=== PATIENT | female | born 1995 | race American Indian/Alaskan Native ===

== ENCOUNTER 2017-10-22 18:17 | Observation (INO) | payer OTHER ==
[2017-10-22] MEDS ORDERED: Sodium Chloride 0.9% 1,000 ML IV ONE ×2 (18:50→21:38)
--- NOTE | 2017-10-22 18:53 | C.PDOC ---
History Of Present Illness 22 yo female, no prior hx, at 5 weeks gestation presents with right sided abd pain/pelvic pain since tuesday. pt was seen at another institution, and had beta of 250, no iup detected. pt reports she followed with her obgyn and was told "nothing was seen". pt reports persistent pain.. pt denies fevers, n/v/d, urinary changes, vb. Time Seen by Provider: 10/22/17 18:33 Chief Complaint (Nursing): Abdominal Pain Past Medical History Reviewed: Historical Data, Nursing Documentation, Vital Signs Vital Signs: Last Vital Signs Temp 98.5 F 10/22/17 22:20 Pulse 88 10/22/17 23:53 Resp 22 10/22/17 23:53 BP 117/54 L 10/22/17 23:53 Pulse Ox 99 10/23/17 00:01 - Medical History PMH: Asthma Family History: States: Unknown Family Hx - Social History Hx Alcohol Use: No Hx Substance Use: No - Immunization History Hx Tetanus Toxoid Vaccination: No Hx Influenza Vaccination: No Hx Pneumococcal Vaccination: No Review Of Systems Gastrointestinal: Positive for: Abdominal Pain Physical Exam - Physical Exam Appears: Well, No Acute Distress Skin: Normal Color, Warm, Dry Eye(s): bilateral: Normal Inspection, PERRL, EOMI Nose: Normal Throat: Normal Neck: Normal Cardiovascular: Rhythm Regular Respiratory: Normal Breath Sounds Gastrointestinal/Abdominal: Normal Exam, Soft, Tenderness (mostly right adenxal pain, mild rlq), No Guarding, No Rebound, Other (obese) Back: Normal Inspection Extremity: Normal ROM ED Course And Treatment - Laboratory Results Result Diagrams: 10/22/17 19:10 10/22/17 19:10 O2 Sat by Pulse Oximetry: 99 Medical Decision Making Medical Decision Making: pt with rlq pain right adexal pain consider early preg, ectopic, possible appendicits - labs imaging pending 1133: pt persistent rlq ttp. us shows suspected early preg vs non viable intrauterine . discussed with us tech. advised US with non visualized appendix. discussed with dr york, agrees to see pt. case discussed with dr beal, agrees to be on consult requests medicine admission. accepted by dr jenkins. pt to get mri in am. updated surgical tech. clinical suspicion for appendicitis is low, as pt afebrile no wbc, however not excluded. pt has been seen 3x this week with same symptoms . pt agrees to obs for mri in am Disposition - Disposition Disposition: HOSPITALIZED Disposition Time: 23:34 Condition: STABLE - Clinical Impression Clinical Impression: Abdominal pain Decision To Admit - Pt Status Changed To: Hospital Disposition Of: Observation - InPatient: Physician Admission Certification:: siddhartha britociimile - . Bed Request Type: Regular Admitting Physician: Jose Jenkins Patient Diagnosis: Abdominal pain
[2017-10-22] MEDS ORDERED: Sodium Chloride 0.9% 1,000 ML ONE ×2 (19:06→21:38)
[2017-10-22 19:13] LABS: EOS # 0.2 K/uL (0.0-0.7); EOS % 5.7 % (0.0-4.0); HEMOGLOBIN 12.8 g/dL (11.0-16.0); LYMPH # 1.9 K/uL (1.0-4.3); LYMPH % 45.9 % (20.0-40.0); MEAN CELL VOLUME 81.2 fL (81.0-99.0); MEAN CORPUSCULAR HEMOGLOBIN 27.2 pg (27.0-31.0); MEAN CORPUSCULAR HGB CONC 33.5 g/dL (33.0-37.0); MEAN PLATELET VOLUME 10.1 fL (7.2-11.7); MONO # 0.5 K/uL (0.0-0.8); MONO % 12.1 % (0.0-10.0); NEUT # 1.5 K/uL (1.8-7.0); NEUT % 35.3 % (50.0-75.0); NRBC % 0.1 % (0.0-2.0); RBC 4.73 Mil/uL (3.80-5.20); RED CELL DISTRIBUTION WIDTH 14.7 % (11.5-14.5); WHITE BLOOD COUNT 4.2 K/uL (4.8-10.8)
[2017-10-22 19:18] LABS: HCG,QUALITATIVE URINE POSITIVE (NEGATIVE); SQUAMOUS EPITHIAL 40 /hpf (0-5); URINE BACTERIA RARE (<OCC); URINE BILIRUBIN NEGATIVE (NEGATIVE); URINE BLOOD NEGATIVE (NEGATIVE); URINE CLARITY Hazy (Clear); URINE COLOR Yellow (YELLOW); URINE GLUCOSE (UA) NORMAL (Normal); URINE LEUKOCYTE ESTERASE TRACE Leu/uL (Negative); URINE PROTEIN 1+ mg/dL (NEGATIVE); URINE UROBILINOGEN NORMAL mg/dL (0.2-1.0)
[2017-10-22 19:27] LABS: ALB/GLOB RATIO 1.2 (1.0-2.1); ALT/SGPT 28 U/L (9-52); AST/SGOT 20 U/L (14-36); BLOOD UREA NITROGEN 8 mg/dL (7-17); CALCIUM 8.7 mg/dl (8.6-10.4); GFR AFRICAN-AMERICAN > 60; GFR NON-AFRICAN AMERICAN > 60; LIPASE 124 U/L (23-300)
[2017-10-22] MEDS ORDERED: Potassium Chloride 20 mEq ER Tab PO STA (19:28)
[2017-10-22 19:30] LABS: INR 1.2; PROTHROMBIN TIME 13.4 SECONDS (9.7-12.2)
[2017-10-22] MEDS ORDERED: Potassium Chloride 20 mEq ER Tab PO ONE (19:41)
--- NOTE | 2017-10-22 22:17 | US ---
EXAM: US First Trimester, Transabdominal CLINICAL HISTORY: 22 years old, female; Pain; complicated by abdominal or pelvic pain; Right lower quadrant; First trimester; Gestational age or lmp: 09/12/17; ; Additional info: Abd pain and TECHNIQUE: Real-time transabdominal obstetrical ultrasound of the maternal pelvis and a first trimester with image documentation. COMPARISON: No relevant prior studies available. FINDINGS: Gestation: Probable gestational sac. No yolk sac. No pole. Mean sac diameter of 0.4 cm, out of range. Uterus/cervix: No subchorionic hemorrhage. No cervical dilatation or effacement. Ovaries: RIGHT ovary: Normal. LEFT ovary: Probable 1.7 x 1.6 x 1.6 cm corpus luteal cyst. No adnexal masses. Free fluid: Small free fluid within pelvis. IMPRESSION: 1. Probable intrauterine , of uncertain viability. Recommend followup. 2. Incidental/non-acute findings are described above. EXAM: US , Transvaginal CLINICAL HISTORY: 22 years old, female; Pain; complicated by abdominal or pelvic pain; Right lower quadrant; First trimester; Gestational age or lmp: 09/12/17; ; Additional info: Abd pain and TECHNIQUE: Real-time transvaginal obstetrical ultrasound of the maternal pelvis and a first trimester with image documentation. Transvaginal imaging was used for better evaluation of the fetus and adnexa. COMPARISON: No relevant prior studies available. FINDINGS: Gestation: Probable gestational sac. No yolk sac. No pole. Mean sac diameter of 0.4 cm, out of range. Uterus/cervix: No subchorionic hemorrhage. No cervical dilatation or effacement. Ovaries: RIGHT ovary: Normal. LEFT ovary: Probable 1.7 x 1.6 x 1.6 cm corpus luteal cyst. No adnexal masses. Free fluid: Small free fluid within pelvis.
--- NOTE | 2017-10-22 23:36 | CP.PCM.CON ---
History of Present Illness - History of Present Illness History of Present Illness: Reason for consult -pelvic pain HPI 24 y/o 22 yo female, no prior hx, at 5 weeks gestation presents with right sided abd pain/pelic pain x 1 week. pt was seen at previous instituion had low beta, no iup detected. pt reports persistent pain. pt denies fevers, n/v /d, urinary changes, vb. Review of Systems - Review of Systems All systems: reviewed and no additional remarkable complaints except - Cardiovascular Cardiovascular: absent: Chest Pain, Dyspnea on Exertion - Respiratory Respiratory: absent: Cough, Dyspnea - Gastrointestinal Gastrointestinal: Abdominal Pain Past Patient History - Past Social History Smoking Status: Never Smoked - PULMONARY Hx Asthma: Yes - PSYCHIATRIC Hx Substance Use: No Meds Allergies/Adverse Reactions: Allergies Allergy/AdvReac Type Severity Reaction Status Date / Time No Known Allergies Allergy Unverified 10/22/17 18:33 Physical Exam - Constitutional Appears: Well, No Acute Distress - Respiratory Exam Respiratory Exam: Clear to Auscultation Bilateral, NORMAL BREATHING PATTERN - Cardiovascular Exam Cardiovascular Exam: REGULAR RHYTHM - GI/Abdominal Exam GI & Abdominal Exam: Soft. absent: Guarding, Rebound, Rigid - Extremities Exam Extremities exam: Negative for: calf tenderness - Back Exam Back exam: absent: CVA tenderness (L), CVA tenderness (R) - Neurological Exam Neurological exam: Alert, Oriented x3 - Psychiatric Exam Psychiatric exam: Normal Affect, Normal Mood - Skin Skin Exam: Normal Color Results - Vital Signs Recent Vital Signs: Last Vital Signs Temp 98.5 F 10/22/17 22:20 Pulse 90 10/22/17 22:20 Resp 22 10/22/17 22:20 BP 107/50 L 10/22/17 22:20 Pulse Ox 99 10/22/17 23:35 - Labs Result Diagrams: 10/22/17 19:10 10/22/17 19:10 Labs: Laboratory Results - last 24 hr 10/22/17 10/22/17 10/22/17 19:10 19:10 19:10 WBC 4.2 L RBC 4.73 Hgb 12.8 Hct 38.4 MCV 81.2 MCH 27.2 MCHC 33.5 RDW 14.7 H Plt Count 266 MPV 10.1 Neut % (Auto) 35.3 L Lymph % (Auto) 45.9 H [place] % (Auto) 12.1 H Eos % (Auto) 5.7 H Baso % (Auto) 1.0 Neut # (Auto) 1.5 L Lymph # (Auto) 1.9 [place] # (Auto) 0.5 Eos # (Auto) 0.2 Baso # (Auto) 0.0 PT 13.4 H INR 1.2 APTT 29 Sodium Potassium Chloride Carbon Dioxide Anion Gap BUN Creatinine Est GFR ( Amer) Est GFR (Non-Af Amer) Random Glucose Calcium Total Bilirubin AST ALT Alkaline Phosphatase Total Protein Albumin Globulin Albumin/Globulin Ratio Lipase Beta HCG, Quant Urine Color Yellow Urine Clarity Hazy Urine pH 6.0 Ur Specific [place] 1.028 Urine Protein 1+ H Urine Glucose (UA) Normal Urine Ketones 2+ H Urine Blood Negative Urine Nitrate Negative Urine Bilirubin Negative Urine Urobilinogen Normal Ur Leukocyte Esterase Trace Urine WBC (Auto) 5 Urine RBC (Auto) 2 Ur Squamous Epith Cells 40 H Urine Bacteria Rare Urine HCG, Qual Positive Blood Type Antibody Screen 10/22/17 10/22/17 10/22/17 19:10 19:39 19:39 WBC RBC Hgb Hct MCV MCH MCHC RDW Plt Count MPV Neut % (Auto) Lymph % (Auto) [place] % (Auto) Eos % (Auto) Baso % (Auto) Neut # (Auto) Lymph # (Auto) [place] # (Auto) Eos # (Auto) Baso # (Auto) PT INR APTT Sodium 139 Potassium 3.3 L Chloride 101 Carbon Dioxide 24 Anion Gap 16 BUN 8 Creatinine 0.7 Est GFR ( Amer) > 60 Est GFR (Non-Af Amer) > 60 Random Glucose 83 Calcium 8.7 Total Bilirubin 0.4 AST 20 ALT 28 Alkaline Phosphatase 59 Total Protein 7.4 Albumin 4.0 Globulin 3.4 Albumin/Globulin Ratio 1.2 Lipase 124 Beta HCG, Quant 1795.50 Urine Color Urine Clarity Urine pH Ur Specific [place] Urine Protein Urine Glucose (UA) Urine Ketones Urine Blood Urine Nitrate Urine Bilirubin Urine Urobilinogen Ur Leukocyte Esterase Urine WBC (Auto) Urine RBC (Auto) Ur Squamous Epith Cells Urine Bacteria Urine HCG, Qual Blood Type B POSITIVE Antibody Screen Negative Assessment & Plan (1) Abdominal pain Assessment and Plan: Patient with c/o right sided abdominal pain On ultrasound small gestational sac seen Clinically no signs of acute abdomen continue management as per ER Status: Acute
--- NOTE | 2017-10-23 00:03 | CP.PCM.HP ---
<Johann Jerome - Last Filed: 10/23/17 01:47> History of Present Illness - History of Present Illness History of Present Illness: PGY1 H+P for Dr. Jenkins Patient is a 22 year old female with a past medical history of asthma, a herniated disc and is currently 5 weeks . She is presenting to the emergency room a chief complaint of RLQ abdominal pain. The pain is described at intermittent and very sharp. Although the pain is usually located in the RLQ , it is sometimes located in her right flank and right low back. It started about 10 days ago and has been getting progressively worse over that time. She went to [facility] [place]18 for the same pain and was told she has a UTI. She was given a prescription for Macrobid which she started on 10/20. She denies any trauma events. The pain feels better with sitting directly upright. She has been able to eat and go to the bathroom without any problems. The only thing that exacerbates the pain is if someone presses directly on the RLQ and/or coughing. Denies any fevers, chills, nausea, vomiting, diarrhea, constipation, increased urination, dysuria, chest pain, sore throat, cough, blurry vision, double vision , loss of bowels, numbness or tingling. PMH: asthma (well controlled. uses inhaler 1-3 times every month) and herniated disc (2013) PSH: denies Family: unknown Social: denies tobacco, alcohol or illicit drug use Allergies: NKDA Present on Admission - Present on Admission Any Indicators Present on Admission: No Review of Systems - Review of Systems All systems: reviewed and no additional remarkable complaints except (as per HPI ) Past Patient History - Past Social History Smoking Status: Never Smoked - PULMONARY Hx Asthma: Yes - PSYCHIATRIC Hx Substance Use: No Meds Allergies/Adverse Reactions: Allergies Allergy/AdvReac Type Severity Reaction Status Date / Time No Known Allergies Allergy Unverified 10/22/17 18:33 Physical Exam - Constitutional Appears: Non-toxic, No Acute Distress - Head Exam Head Exam: ATRAUMATIC, NORMOCEPHALIC - Eye Exam Eye Exam: EOMI, Normal appearance - ENT Exam ENT Exam: Mucous Membranes Moist - Respiratory Exam Respiratory Exam: Clear to Auscultation Bilateral, NORMAL BREATHING PATTERN. absent: Accessory Muscle Use, Rales, Rhonchi, Wheezes, Respiratory Distress - Cardiovascular Exam Cardiovascular Exam: REGULAR RHYTHM, +S1, +S2 - GI/Abdominal Exam GI & Abdominal Exam: Normal Bowel Sounds, Soft, Tenderness (RLQ - mild). absent : Distended, Firm, Guarding, Rigid - Extremities Exam Extremities exam: Positive for: pedal pulses present. Negative for: calf tenderness, pedal edema - Back Exam Back exam: muscle spasm (lumbar region - right), paraspinal tenderness (lumbar - right), vertebral tenderness (lumbar region). absent: CVA tenderness (L), CVA tenderness (R) Additional comments: Straight Leg raise positive on right. Patient is extremely point tender in lumbar region along right side. Patient states the pain is primarily located in her pain, but radiates around to the front as well in. - Neurological Exam Neurological exam: Alert, Oriented x3 - Psychiatric Exam Psychiatric exam: Normal Affect, Normal Mood - Skin Skin Exam: Dry, Warm Results - Vital Signs Recent Vital Signs: Last Vital Signs Temp 98.5 F 10/22/17 22:20 Pulse 88 10/22/17 23:53 Resp 22 10/22/17 23:53 BP 117/54 L 10/22/17 23:53 Pulse Ox 99 10/23/17 00:01 - Labs Result Diagrams: 10/22/17 19:10 10/22/17 19:10 Labs: Laboratory Results - last 24 hr 10/22/17 10/22/17 10/22/17 19:10 19:10 19:10 WBC 4.2 L RBC 4.73 Hgb 12.8 Hct 38.4 MCV 81.2 MCH 27.2 MCHC 33.5 RDW 14.7 H Plt Count 266 MPV 10.1 Neut % (Auto) 35.3 L Lymph % (Auto) 45.9 H [place] % (Auto) 12.1 H Eos % (Auto) 5.7 H Baso % (Auto) 1.0 Neut # (Auto) 1.5 L Lymph # (Auto) 1.9 [place] # (Auto) 0.5 Eos # (Auto) 0.2 Baso # (Auto) 0.0 PT 13.4 H INR 1.2 APTT 29 Sodium Potassium Chloride Carbon Dioxide Anion Gap BUN Creatinine Est GFR ( Amer) Est GFR (Non-Af Amer) Random Glucose Calcium Total Bilirubin AST ALT Alkaline Phosphatase Total Protein Albumin Globulin Albumin/Globulin Ratio Lipase Beta HCG, Quant Urine Color Yellow Urine Clarity Hazy Urine pH 6.0 Ur Specific [place] 1.028 Urine Protein 1+ H Urine Glucose (UA) Normal Urine Ketones 2+ H Urine Blood Negative Urine Nitrate Negative Urine Bilirubin Negative Urine Urobilinogen Normal Ur Leukocyte Esterase Trace Urine WBC (Auto) 5 Urine RBC (Auto) 2 Ur Squamous Epith Cells 40 H Urine Bacteria Rare Urine HCG, Qual Positive Blood Type Antibody Screen 10/22/17 10/22/17 10/22/17 19:10 19:39 19:39 WBC RBC Hgb Hct MCV MCH MCHC RDW Plt Count MPV Neut % (Auto) Lymph % (Auto) [place] % (Auto) Eos % (Auto) Baso % (Auto) Neut # (Auto) Lymph # (Auto) [place] # (Auto) Eos # (Auto) Baso # (Auto) PT INR APTT Sodium 139 Potassium 3.3 L Chloride 101 Carbon Dioxide 24 Anion Gap 16 BUN 8 Creatinine 0.7 Est GFR ( Amer) > 60 Est GFR (Non-Af Amer) > 60 Random Glucose 83 Calcium 8.7 Total Bilirubin 0.4 AST 20 ALT 28 Alkaline Phosphatase 59 Total Protein 7.4 Albumin 4.0 Globulin 3.4 Albumin/Globulin Ratio 1.2 Lipase 124 Beta HCG, Quant 1795.50 Urine Color Urine Clarity Urine pH Ur Specific [place] Urine Protein Urine Glucose (UA) Urine Ketones Urine Blood Urine Nitrate Urine Bilirubin Urine Urobilinogen Ur Leukocyte Esterase Urine WBC (Auto) Urine RBC (Auto) Ur Squamous Epith Cells Urine Bacteria Urine HCG, Qual Blood Type B POSITIVE Antibody Screen Negative Assessment & Plan - Assessment and Plan (Free Text) Plan: Abdominal/Low Back Pain automation controls expert consulted, Dr. Mcleod - help appreciated Surgery consulted, Dr. Hay - help appreciated MRI Spinal - f/u r/o herniated disc MRI Abdomen - f/u r/o appendicitis Lipase 124 UA Protein 1+, Ketones 2+, Leuk Est trace, Nitrate neg NS@100mL/hr approx. 5 weeks automation controls expert consulted, Dr. Mcleod OB US - 1. Probable intrauterine , of uncertain viability. Recommend followup. Beta HCG - 1795.5 hx of UTI Continue recent rx Macrobid 100mg PO BID (was started on 10/20) Prophylactic Care SCDs Case discussed with Dr. Gregory Wills Justus PGY1 <Jose Jenkins P - Last Filed: 10/23/17 06:47> Results - Vital Signs Recent Vital Signs: Last Vital Signs Temp 98.6 F 10/23/17 00:50 Pulse 97 H 10/23/17 00:50 Resp 20 10/23/17 00:50 BP 91/57 L 10/23/17 00:50 Pulse Ox 100 10/23/17 00:50 - Labs Result Diagrams: 10/22/17 19:10 10/22/17 19:10 Labs: Laboratory Results - last 24 hr 10/22/17 10/22/17 10/22/17 19:10 19:10 19:10 WBC 4.2 L RBC 4.73 Hgb 12.8 Hct 38.4 MCV 81.2 MCH 27.2 MCHC 33.5 RDW 14.7 H Plt Count 266 MPV 10.1 Neut % (Auto) 35.3 L Lymph % (Auto) 45.9 H [place] % (Auto) 12.1 H Eos % (Auto) 5.7 H Baso % (Auto) 1.0 Neut # (Auto) 1.5 L Lymph # (Auto) 1.9 [place] # (Auto) 0.5 Eos # (Auto) 0.2 Baso # (Auto) 0.0 PT 13.4 H INR 1.2 APTT 29 Sodium Potassium Chloride Carbon Dioxide Anion Gap BUN Creatinine Est GFR ( Amer) Est GFR (Non-Af Amer) Random Glucose Calcium Total Bilirubin AST ALT Alkaline Phosphatase Total Protein Albumin Globulin Albumin/Globulin Ratio Lipase Beta HCG, Quant Urine Color Yellow Urine Clarity Hazy Urine pH 6.0 Ur Specific [place] 1.028 Urine Protein 1+ H Urine Glucose (UA) Normal Urine Ketones 2+ H Urine Blood Negative Urine Nitrate Negative Urine Bilirubin Negative Urine Urobilinogen Normal Ur Leukocyte Esterase Trace Urine WBC (Auto) 5 Urine RBC (Auto) 2 Ur Squamous Epith Cells 40 H Urine Bacteria Rare Urine HCG, Qual Positive Blood Type Antibody Screen 10/22/17 10/22/17 10/22/17 19:10 19:39 19:39 WBC RBC Hgb Hct MCV MCH MCHC RDW Plt Count MPV Neut % (Auto) Lymph % (Auto) [place] % (Auto) Eos % (Auto) Baso % (Auto) Neut # (Auto) Lymph # (Auto) [place] # (Auto) Eos # (Auto) Baso # (Auto) PT INR APTT Sodium 139 Potassium 3.3 L Chloride 101 Carbon Dioxide 24 Anion Gap 16 BUN 8 Creatinine 0.7 Est GFR ( Amer) > 60 Est GFR (Non-Af Amer) > 60 Random Glucose 83 Calcium 8.7 Total Bilirubin 0.4 AST 20 ALT 28 Alkaline Phosphatase 59 Total Protein 7.4 Albumin 4.0 Globulin 3.4 Albumin/Globulin Ratio 1.2 Lipase 124 Beta HCG, Quant 1795.50 Urine Color Urine Clarity Urine pH Ur Specific [place] Urine Protein Urine Glucose (UA) Urine Ketones Urine Blood Urine Nitrate Urine Bilirubin Urine Urobilinogen Ur Leukocyte Esterase Urine WBC (Auto) Urine RBC (Auto) Ur Squamous Epith Cells Urine Bacteria Urine HCG, Qual Blood Type B POSITIVE Antibody Screen Negative Attending/Attestation - Attestation I have personally seen and examined this patient.: Yes I have fully participated in the care of the patient.: Yes I have reviewed all pertinent clinical information: Yes Notes (Text): 10/23/17 06:36 * C/o RLQ pain, patient is tender rlq, but also in lumbar spine, SLR about 40 deg on right, left normal, h/o chronic back pain, no c/o bowel or bladder DD from presentation spine or musculoskeletal pain rather intraabdominal organ related * 5 wks gestation * H/o asthma, controlled Plan * Tylenol for pain control * MRI, spine and lower abd to confirm assessment. * See orders for detail.
[2017-10-23 01:38] VITALS: RESP 20
--- NOTE | 2017-10-23 01:39 | CP.PCM.CON ---
History of Present Illness - History of Present Illness History of Present Illness: Surgery Consult note. Dr. Lara 22yo M with PMHx of Asthma here for evaluation of abdominal pain. Pain has been on going or the past week, located in the Right Lower quadrant. Described as sharp, intermittent, radiates to the umbilicus and right back. Pain has progressively become worse over the course of the past week. Denies any nausea, vomiting. No fevers or chills. She [place] [facility] [place]18 and was treated for a UTI. She in currently 5 weeks . Denies any trauma. No Chest pain. No SOB. No sick contacts. No diarrhea or constipation. Denies any current urinary complaints. PMHx: Asthma, Back pain PSHx: None Family Hx: non contributory Social Hx: Denies Tobacco use; Denies ETOH; Denies illicit drugs. Accompanied by mother NKDA Review of Systems - Review of Systems All systems: reviewed and no additional remarkable complaints except - Constitutional Constitutional: absent: Chills, Fever - Cardiovascular Cardiovascular: absent: Chest Pain, Diaphoresis, Dyspnea - Respiratory Respiratory: absent: Dyspnea - Gastrointestinal Gastrointestinal: Abdominal Pain. absent: Cramping, Diarrhea, Nausea, Vomiting - Genitourinary Genitourinary: absent: Difficulty Urinating, Dysuria - Musculoskeletal Musculoskeletal: Back Pain - Neurological Neurological: absent: Abnormal Gait, Dizziness, Headaches Past Patient History - Past Medical History & Family History Past Medical History?: Yes Past Family History: Reviewed and not pertinent - Past Social History Smoking Status: Never Smoked Alcohol: None Drugs: Denies - PULMONARY Hx Asthma: Yes - PSYCHIATRIC Hx Substance Use: No Meds Allergies/Adverse Reactions: Allergies Allergy/AdvReac Type Severity Reaction Status Date / Time No Known Allergies Allergy Unverified 10/22/17 18:33 Physical Exam - Constitutional Appears: Well, Non-toxic, No Acute Distress - Head Exam Head Exam: ATRAUMATIC, NORMAL INSPECTION, NORMOCEPHALIC - Eye Exam Eye Exam: EOMI, Normal appearance - ENT Exam ENT Exam: Mucous Membranes Moist - Respiratory Exam Respiratory Exam: NORMAL BREATHING PATTERN. absent: Accessory Muscle Use, Respiratory Distress - Cardiovascular Exam Cardiovascular Exam: absent: JVD - GI/Abdominal Exam GI & Abdominal Exam: Soft. absent: Distended, Firm, Guarding, Rebound Additional comments: tenderness to palpation RLQ and periumbilical. No rebound, no guarding. Non distended, soft - Extremities Exam Extremities exam: Positive for: normal inspection - Neurological Exam Neurological exam: Alert, Oriented x3 - Psychiatric Exam Psychiatric exam: Anxious - Skin Skin Exam: Dry, Intact, Normal Color, Warm Results - Vital Signs Recent Vital Signs: Last Vital Signs Temp 98.6 F 10/23/17 00:50 Pulse 97 H 10/23/17 00:50 Resp 20 10/23/17 00:50 BP 91/57 L 10/23/17 00:50 Pulse Ox 100 10/23/17 00:50 - Labs Result Diagrams: 10/22/17 19:10 10/22/17 19:10 Labs: Laboratory Results - last 24 hr 10/22/17 10/22/17 10/22/17 19:10 19:10 19:10 WBC 4.2 L RBC 4.73 Hgb 12.8 Hct 38.4 MCV 81.2 MCH 27.2 MCHC 33.5 RDW 14.7 H Plt Count 266 MPV 10.1 Neut % (Auto) 35.3 L Lymph % (Auto) 45.9 H [place] % (Auto) 12.1 H Eos % (Auto) 5.7 H Baso % (Auto) 1.0 Neut # (Auto) 1.5 L Lymph # (Auto) 1.9 Person # (Auto) 0.5 Eos # (Auto) 0.2 Baso # (Auto) 0.0 PT 13.4 H INR 1.2 APTT 29 Sodium Potassium Chloride Carbon Dioxide Anion Gap BUN Creatinine Est GFR ( Amer) Est GFR (Non-Af Amer) Random Glucose Calcium Total Bilirubin AST ALT Alkaline Phosphatase Total Protein Albumin Globulin Albumin/Globulin Ratio Lipase Beta HCG, Quant Urine Color Yellow Urine Clarity Hazy Urine pH 6.0 Ur Specific [place] 1.028 Urine Protein 1+ H Urine Glucose (UA) Normal Urine Ketones 2+ H Urine Blood Negative Urine Nitrate Negative Urine Bilirubin Negative Urine Urobilinogen Normal Ur Leukocyte Esterase Trace Urine WBC (Auto) 5 Urine RBC (Auto) 2 Ur Squamous Epith Cells 40 H Urine Bacteria Rare Urine HCG, Qual Positive Blood Type Antibody Screen 10/22/17 10/22/17 10/22/17 19:10 19:39 19:39 WBC RBC Hgb Hct MCV MCH MCHC RDW Plt Count MPV Neut % (Auto) Lymph % (Auto) [place] % (Auto) Eos % (Auto) Baso % (Auto) Neut # (Auto) Lymph # (Auto) Person # (Auto) Eos # (Auto) Baso # (Auto) PT INR APTT Sodium 139 Potassium 3.3 L Chloride 101 Carbon Dioxide 24 Anion Gap 16 BUN 8 Creatinine 0.7 Est GFR ( Amer) > 60 Est GFR (Non-Af Amer) > 60 Random Glucose 83 Calcium 8.7 Total Bilirubin 0.4 AST 20 ALT 28 Alkaline Phosphatase 59 Total Protein 7.4 Albumin 4.0 Globulin 3.4 Albumin/Globulin Ratio 1.2 Lipase 124 Beta HCG, Quant 1795.50 Urine Color Urine Clarity Urine pH Ur Specific [place] Urine Protein Urine Glucose (UA) Urine Ketones Urine Blood Urine Nitrate Urine Bilirubin Urine Urobilinogen Ur Leukocyte Esterase Urine WBC (Auto) Urine RBC (Auto) Ur Squamous Epith Cells Urine Bacteria Urine HCG, Qual Blood Type B POSITIVE Antibody Screen Negative Assessment & Plan - Assessment and Plan (Free Text) Assessment: 22yo F 5 weeks . Surgery consulted for r/o Appendicitis Plan: - F/u MRI Abdomen - NPO in the meantime - serial abdominal exams - We will make further recommendations as we follow patient's clinical course Further recs as per Dr. Jane Hammond PGY1 surgery pager: [phone]
[2017-10-23] MEDS: Sodium Chloride 0.9% 1,000 ML IV SCH ×3 (01:45→17:00)
--- NOTE | 2017-10-23 08:19 | CP.PCM.PN ---
Subjective - Date & Time of Evaluation Date of Evaluation: 10/23/17 Time of Evaluation: 08:00 - Subjective Subjective: Hospitalist Progress Note Patient was seen and examined at 8 AM 10/23/17 Bed 353 B with Mom present and this was ok wit the patient. 22 year old female who presented on night of 10/22/17 for complaints of RLQ Pain. This pain has been present for the past 10 days, is intermittent, sharp and at times associated with Right Low Back Pain radiating to the Right Lateral Upper Thigh. She explains that she has a history of Chronic Low Back for 3 years now when she was diagnosed with a herniated disc for which she has received epidural injections x 2 in the past. She was seen at [facility] for this pain on 10/18/17 and started on Macrobid as she was told that she had a UTI as per patient. U/S Abdomen done here shows probable intrauterine of the uncertain vitality. UA showed evidence of UTI with LE + and Ketones +. Surgery Team was brought on board for possible Appendicitis. Patient is pending MRI Abdomen/Thoracic Spine/Lumbar Spine which will be performed at [facility] as MRI can not be performed at [facility] today. Currently upon FULL ROS: NO back pain NO numbness/pain in the right upper lateral thigh RUQ and RLQ abdominal pain if someone palpates this area or if she moves while in bed in a particular way Last meal was last night around 11 PM She has been moving her bowel daily normally She has been tolerating a regular diet without nausea/vomiting NO chest pain NO palpitations NO shotness breath/wheezing NO cough NO soreness throat/dysphagi/odynophagia NO burning/pain with urination NO changes in color of urine other clear to light yellow NO edema NO headache NO new changes in vision/eye pain NO new changes in hearing/ear pain Exam: General: AAOX3, NAD, She was resting comfortable and did not appear to be in any pain HEENT: NCA, EOMI, PERRLA, NO cervical/supraclavicular/submandibular lymphadenopathy, NO pharyngeal erythema/exudate, Nasal Turbinates are nonerythematous/nonedematous, Oral Mucosa is dry Cardio: NS1 and NS2, NO M/R/G Resp: CTA B/L, NO R/R/W GI: BSx4, Soft, NO HSM, (+) Tenderness to deep palpation RLQ but there was NO guarding/rebound tenderness Ext: Pulses are strong and equal, Capillary Refill is 2 seconds, NO edema Neuro: CN II through XII are grossly intact Assessment and Plan: 1) RLQ Abdominal Pain R/O Abdominal Etiology MRI Abdomen and Lumbar/Thoracic Spine without contrast at [facility] NPO for now NS at 100 ml/hour Surgery Team Dr. Lara help is appreciated Status: Acute 2). Hx UTI Macrobid 100 mg PO 2x/day (which was started by patient on 10/20/17 after being seen at [facility] on 10/18/17) F/U Urine Culture Status: Acute 3). Intrauterine As per U/S Abdomen F/U Blister Rust Eradicator Dr. Mcleod's recommendations and her help is appreciated Status: Acute 4). Hx of Herniated Disc F/U MRI Lumbar/Thoracic without contrast Status: Chronic Shlomo Lomas D.O. Objective - Vital Signs/Intake and Output Vital Signs (last 24 hours): Temp Pulse Resp BP Pulse Ox 98.2 F 100 H 20 103/64 99 10/23/17 06:00 10/23/17 06:00 10/23/17 06:00 10/23/17 06:00 10/23/17 06:00 - Medications Medications: Current Medications Sodium Chloride (Sodium Chloride 0.9%) 1,000 mls @ 100 mls/hr IV .Q10H MP Last Admin: 10/23/17 01:45 Dose: 100 mls/hr Nitrofurantoin Macrocrystals (Macrobid) 100 mg PO BID MP PRN Reason: Protocol Pneumococcal Polyvalent Vaccine (Pneumovax 23 Vaccine) 0.5 ml IM .ONCE ONE Stop: 10/24/17 10:01 - Labs Labs: 10/22/17 19:10 10/22/17 19:10 PT 13.4 SECONDS (9.7-12.2) H 10/22/17 19:10 INR 1.2 10/22/17 19:10 APTT 29 SECONDS (21-34) 10/22/17 19:10
[2017-10-23 16:15] VITALS: BP 88/49; PULSE 87; TEMP 98.7; O2SAT 100
--- NOTE | 2017-10-23 17:36 | CP.PCM.DIS ---
Provider - Provider Date of Admission: 10/22/17 23:15 Attending physician: Jose Jenkins MD Time Spent in preparation of Discharge (in minutes): 45 Hospital Course - Lab Results Lab Results: Most Recent Lab Values WBC 4.2 K/uL (4.8-10.8) L 10/22/17 19:10 RBC 4.73 Mil/uL (3.80-5.20) 10/22/17 19:10 Hgb 12.8 g/dL (11.0-16.0) 10/22/17 19:10 Hct 38.4 % (34.0-47.0) 10/22/17 19:10 MCV 81.2 fL (81.0-99.0) 10/22/17 19:10 MCH 27.2 pg (27.0-31.0) 10/22/17 19:10 MCHC 33.5 g/dL (33.0-37.0) 10/22/17 19:10 RDW 14.7 % (11.5-14.5) H 10/22/17 19:10 Plt Count 266 K/uL (130-400) 10/22/17 19:10 MPV 10.1 fL (7.2-11.7) 10/22/17 19:10 Neut % (Auto) 35.3 % (50.0-75.0) L 10/22/17 19:10 Lymph % (Auto) 45.9 % (20.0-40.0) H 10/22/17 19:10 [place] % (Auto) 12.1 % (0.0-10.0) H 10/22/17 19:10 Eos % (Auto) 5.7 % (0.0-4.0) H 10/22/17 19:10 Baso % (Auto) 1.0 % (0.0-2.0) 10/22/17 19:10 Neut # (Auto) 1.5 K/uL (1.8-7.0) L 10/22/17 19:10 Lymph # (Auto) 1.9 K/uL (1.0-4.3) 10/22/17 19:10 [place] # (Auto) 0.5 K/uL (0.0-0.8) 10/22/17 19:10 Eos # (Auto) 0.2 K/uL (0.0-0.7) 10/22/17 19:10 Baso # (Auto) 0.0 K/uL (0.0-0.2) 10/22/17 19:10 PT 13.4 SECONDS (9.7-12.2) H 10/22/17 19:10 INR 1.2 10/22/17 19:10 APTT 29 SECONDS (21-34) 10/22/17 19:10 Sodium 139 mmol/L (132-148) 10/22/17 19:10 Potassium 3.3 mmol/L (3.6-5.2) L 10/22/17 19:10 Chloride 101 mmol/L (98-107) 10/22/17 19:10 Carbon Dioxide 24 mmol/L (22-30) 10/22/17 19:10 Anion Gap 16 (10-20) 10/22/17 19:10 BUN 8 mg/dL (7-17) 10/22/17 19:10 Creatinine 0.7 mg/dL (0.7-1.2) 10/22/17 19:10 Est GFR ( Amer) > 60 10/22/17 19:10 Est GFR (Non-Af Amer) > 60 10/22/17 19:10 Random Glucose 83 mg/dL (65-105) 10/22/17 19:10 Calcium 8.7 mg/dl (8.6-10.4) 10/22/17 19:10 Total Bilirubin 0.4 mg/dL (0.2-1.3) 10/22/17 19:10 AST 20 U/L (14-36) 10/22/17 19:10 ALT 28 U/L (9-52) 10/22/17 19:10 Alkaline Phosphatase 59 U/L (38-126) 10/22/17 19:10 Total Protein 7.4 g/dL (6.3-8.3) 10/22/17 19:10 Albumin 4.0 g/dL (3.5-5.0) 10/22/17 19:10 Globulin 3.4 gm/dL (2.2-3.9) 10/22/17 19:10 Albumin/Globulin Ratio 1.2 (1.0-2.1) 10/22/17 19:10 Lipase 124 U/L (23-300) 10/22/17 19:10 Beta HCG, Quant 1795.50 mIU/ML 10/22/17 19:39 Urine Color Yellow (YELLOW) 10/22/17 19: Urine Clarity Hazy (Clear) 10/22/17 19:10 Urine pH 6.0 (5.0-8.0) 10/22/17 19:10 Ur Specific [place] 1.028 (1.003-1.030) 10/22/17 19:10 Urine Protein 1+ mg/dL (NEGATIVE) H 10/22/17 19:10 Urine Glucose (UA) Normal mg/dL (Normal) 10/22/17 19:10 Urine Ketones 2+ mg/dL (NEGATIVE) H 10/22/17 19:10 Urine Blood Negative (NEGATIVE) 10/22/17 19:10 Urine Nitrate Negative (NEGATIVE) 10/22/17 19:10 Urine Bilirubin Negative (NEGATIVE) 10/22/17:10 Urine Urobilinogen Normal mg/dL (0.2-1.0) 10/22/17 19:10 Ur Leukocyte Esterase Trace Keith/uL (Negative) 10/22/17 19:10 Urine WBC (Auto) 5 /hpf (0-5) 10/22/17 19:10 Urine RBC (Auto) 2 /hpf (0-3) 10/22/17 19:10 Ur Squamous Epith Cells 40 /hpf (0-5) H 10/22/17 19:10 Urine Bacteria Rare (<OCC) 10/22/17 19:10 Urine HCG, Qual Positive (NEGATIVE) 10/22/17:10 Blood Type B POSITIVE 10/22/17:39 Antibody Screen Negative 10/22/17 19:39 - Hospital Course Hospital Course: HPI (As per admission): Patient is a 22 year old female with a past medical history of asthma, a herniated disc and is currently 5 weeks . She is presenting to the emergency room a chief complaint of RLQ abdominal pain. The pain is described at intermittent and very sharp. Although the pain is usually located in the RLQ , it is sometimes located in her right flank and right low back. It started about 10 days ago and has been getting progressively worse over that time. She went to [facility] on 10/18 for the same pain and was told she has a UTI. She was given a prescription for Macrobid which she started on 10/20. She denies any trauma events. The pain feels better with sitting directly upright. She has been able to eat and go to the bathroom without any problems. The only thing that exacerbates the pain is if someone presses directly on the RLQ and/or coughing. Denies any fevers, chills, nausea, vomiting, diarrhea, constipation, increased urination, dysuria, chest pain, sore throat, cough, blurry vision, double vision , loss of bowels, numbness or tingling. Hospital Course: The patient was admitted with the consideration of abdominal pain/back pain and rule out appendicitis. General surgery consult was placed to Dr. Lara, who recommended MRI abdomen to rule out appendicitis. Land Planner consult was placed to hospitalist refrigeration person, Dr. Mcleod, who commented that patient does not present clinically with acute abdomen and agrees with management as per ER. Patient's MRI ruled out acute abdomen. General surgery and medicine team cleared the patient for discharge with appropriate instruction. Over the course of admission, patient remained stable with no acute issues. Pertinent Imaging: OB US - 1. Probable intrauterine , of uncertain viability. Recommend followup. MRI of the abdomen and back was completed at [facility] This a brief summary of event. For a complete hospital course, please refer to the medical records. Discharge Exam - Head Exam Head Exam: ATRAUMATIC, NORMAL INSPECTION, NORMOCEPHALIC - Eye Exam Eye Exam: EOMI, Normal appearance - ENT Exam ENT Exam: Mucous Membranes Moist - Respiratory Exam Respiratory Exam: Clear to PA & Lateral, NORMAL BREATHING PATTERN. absent: Prolonged Expiratory Phase, Wheezes, Respiratory Distress - Cardiovascular Exam Cardiovascular Exam: REGULAR RHYTHM, +S1, +S2. absent: Systolic Murmur - GI/Abdominal Exam GI & Abdominal Exam: Normal Bowel Sounds, Soft. absent: Distended, Firm, Guarding, Hernia, Tenderness - Extremities Exam Extremities exam: normal inspection - Neurological Exam Neurological exam: Alert, Oriented x3 - Psychiatric Exam Psychiatric exam: Normal Affect - Skin Skin Exam: Normal Color Discharge Plan - Follow Up Plan Condition: STABLE Disposition: HOME/ ROUTINE Instructions: Acute Abdominal Pain (DC), Acute Abdominal Pain (GEN) Additional Instructions: Please discharge patient home as she medically stable Please continue your macrobid prescription as instructed by [facility] Please follow up with your primary care physician for referral to pain management Please follow up with your Land Planner, Dr. Rico for care Please take over the counter care Please return to the hospital for worsening symptoms Please take care
[2017-10-24] MEDS ORDERED: Pneumococcal 23-Valent Vaccine IM ONE (10:00)
[2017-10-24] MEDS ORDERED: Influenza Vaccine 60 mcg/0.5 mL SYR (4YR UP) IM ONE (10:00)
== END 2017-10-23 18:55 | disposition home or self-care (01) ==
LOC: C.ER 18:17 → C.9E 23:15 → C.3T 23:34
PROVIDERS: ADMIT Family Medicine; ATTEND Family Medicine
DX: R10.31 Right lower quadrant pain (principal); Z3A.01 Less than 8 weeks gestation of pregnancy; J45.909 Unspecified asthma, uncomplicated; Z87.440 Personal history of urinary (tract) infections; O23.41 Unspecified infection of urinary tract in pregnancy, first trimester; M51.25 Other intervertebral disc displacement, thoracolumbar region; O26.891 Other specified pregnancy related conditions, first trimester
CPT/HCPCS: 76805; 76817; 80053; 81001; 83690; 84702; 84703; 85025; 85610; 85730; 86850; 86900; 87086; 96360; G0378; J7040

== ENCOUNTER 2018-05-30 20:14 | Observation (INO) | payer OTHER, MEDICAID ==
[2018-05-30 22:33] VITALS: BMI 36.6
[2018-05-30] MEDS ORDERED: Nalbuphine HCL 10 mg/ml Ampule IVP ONE (22:37)
[2018-05-30] MEDS ORDERED: DiphenhydrAMINE 50 mg/ml Inj IVP STA (22:37)
[2018-05-30] MEDS ORDERED: Lactated Ringer's 1,000 ML IV SCH (22:45)
[2018-05-30] MEDS ORDERED: Nalbuphine HCL 10 mg/ml Ampule ONE (23:35)
--- NOTE | 2018-05-30 23:45 | OBHP ---
Datetime: 05/30/2018 23:00 IP Adm Impression: Term, intrauterine ; No Active Labor IP Admit Plan: Observation/Evaluation Admit Comment, IP Provider: 22 y.o. , LMP 09/12/17, SHALOM 06/19/18, EGA 37weeks, c/o Ctx, onset , pain scale 6/10 then; now, pain scale 9/10; unable to tell frequency. (+) AFM; denies LOF, VB. care: Dr. Abigail Lomas; no issues. last visit 05/26/18 P Ob: Primip P MANAGER [facility]: 13 x monthly x 7. Denies h/o STIs, abnormal Pap, myomata, ovarian cysta PMH: 1) herniate discs "mid-spine to lower back"; 2) asthma -since age 8; last attack 2 years ago . Never intubated; (+) h/o steroid use. PSH: 2013, right foot surgery..."they had to break my toes because of bunion" NKDA Meds: not taking multi- or vitamins since "late second trimester" Soc Hx: denies tobacco, illicit drug or EtOH use. Lives with her mother and father. FOB not involv ed. Unemployed Fam H: Mother alive 59 - no med issues. Father alive 60 - CAD, S/P VA; pre-DM; dyslipidemia 1 mat aunt - h/o cancer. P.E.: as above. Obese, in mild discomfort. Awake, alert, orieinted to time, person and place. [employer] Sales Supervisor perative Assessment: 22 y.o. P0, 37 weeks, uterine contractions not in labor. H/O herniated discs and low b ack pain. Category [address] Lomas: give therapeutic rest; re-examine in AM. I f cervical change is made, will admit. If no cervical change is made, will discharge home. Patient ex pressed an understanding and agrees. No questions offered. Clinically stable. Plan: 1) Patient in observaiton mode 2) IVFs 3) Nubain 10 mg IVP x 1 4) Benadryl 25 mg IVP x 1 5) Continuous EFM 6) Observe - as per, and D/W, Dr. Abigail Lomas Pelvic Type - PN: Adequate Extremities - PN: Normal Abdomen - PN: Normal Back - PN: Normal Breast - PN: Not Done Lungs - PN: Normal Heart - PN: Normal Thyroid - PN: Not Done Neurologic - PN: Normal HEENT - PN: Normal General - PN: Normal Presentation-Admit: Vertex FHR - Baseline A Provider: 150 Membranes, Provider: Intact Contraction Comments Provider: 5 minutes Comments, ACOG Physical Exam: Abdomen: Gravid. Soft. Non tender Cervical exam: external os 1 cm; internal os closed All other systems reviewed - as per HPI Gestation - Est Wks by US: 37.0 EGA AdmitDate IP: 37.1 Vital Signs Provider: Reviewed IP Chief Complaint: Uterine contractions NICHD Variability Prov Fetus A: Moderate 6-25bpm NICHD Accel Fetus A IP Provider: 15X15 FHR Category Provider Fetus A: Category I NICHD Decel Fetus A IP Provider: None Dilatation, Provider: 0 Effacement, Provider: 30 Station, Provider: -3 Genitourinary Exam: Normal DTRs - PN: Not Done
[2018-05-31 00:50] LABS: SQUAMOUS EPITHIAL 16 /hpf (0-5); URINE BILIRUBIN NEGATIVE (NEGATIVE); URINE BLOOD NEGATIVE (NEGATIVE); URINE CLARITY Hazy (Clear); URINE COLOR Yellow (YELLOW); URINE GLUCOSE (UA) NORMAL (Normal); URINE LEUKOCYTE ESTERASE TRACE Leu/uL (Negative); URINE PROTEIN 1+ mg/dL (NEGATIVE)
[2018-05-31] MEDS ORDERED: Lactated Ringer's 500 ML IV ONE (07:45)
--- NOTE | 2018-05-31 09:03 | OBPN ---
Datetime: 05/31/2018 08:38 IP Progress Plan Other: Continue Observation IP Progress Impression: Reassuring heart rate IP Procedures: Sterile Vag Exam; Ultrasound; Biophysical Profile IP Progress Plan: Continue present management Membranes, Provider: Intact Contraction Comments Provider: Irregular 4-6 mins FHR - Baseline A Provider: 150-160 Gestation - Est Wks by US: 37.2 Presentation-Admit: Vertex IP Progress Note Comment: Pt continuous with Irregular contractions. Admits to adequate FM and Vane rodríguez LOF, VB States that her pain is 9 of 10 but does not appeared so uncomfortable VSS but Temp 100 this AM and decreased to 99 after IVF Hydration UA with +1 proteinuria and + Epithelial cells, most likely contaminated. No S or S or PIH and nl B P's SVE with minimal to no change and patient and Dr. Lomas aware DeRyder Lomas requested an OBUS with BPP and maybe pain medication if indicated Possible D/C home later if all OK Vital Signs Provider: Reviewed; Within Normal Limits NICHD Accel Fetus A IP Provider: 10X10 FHR Category Provider Fetus A: Category I NICHD Variability Prov Fetus A: Moderate 6-25bpm Dilatation, Provider: FTP Effacement, Provider: 50 Station, Provider: floating/Posterior NICHD Decel Fetus A IP Provider: None
--- NOTE | 2018-05-31 10:37 | US ---
Indication: Pelvic pain at 37.2 weeks Comparison: OB limited/biophysical profile performed 04/23/18 Technique: Real-time ultrasound was performed through the pelvis. Findings: There is a single living fetus in cephalic presentation. Amniotic fluid volume is within normal limits. Posterior fundal placenta. The placenta is not previa. There are no adnexal masses or cysts evident. Cervix length measures approximately 2.8 cm. The study was performed for the emergent evaluation of pain, and the whole anatomic survey of the fetus was not performed. Limited visualized anatomy, grossly unremarkable. Measurements and calculations: Fetus has a composite sonographic age of 37 weeks 0 days. This calculation is based on the biparietal diameter, head circumference, abdominal circumference, and femur length. Estimated heart rate 185 beats per min. Estimated weight 2969. Biophysical profile: movements 2/2 breathing 2/2 tone 2/2 Amniotic fluid 2/2 Total score impression: 03/22 Impression: Single living fetus with a composite sonographic age of 37 weeks 0 days. Estimated heart rate 185 beats per min. Biophysical profile of 8 out of 8. Cervix length approximately 2.8 cm.
[2018-05-31] MEDS ORDERED: Nalbuphine HCL 10 mg/ml Ampule IVP ONE (11:16)
--- NOTE | 2018-05-31 12:29 | OBPN ---
Datetime: 05/31/2018 12:15 IP Progress Impression: Reassuring heart rate IP Procedures: Sterile Vag Exam; Biophysical Profile IP Progress Plan: Continue present management Membranes, Provider: Intact FHR - Baseline A Provider: 150 Gestation - Est Wks by US: 37.2 Presentation-Admit: Vertex IP Progress Note Comment: Patient s/p BPP with 03/22. Patient re-evaluated, reports 03/24 pain, howeve r appears to be resting comfortably in bed. Reactive NST. Irregular contractions with no cervical change Patient given Nubain 11:30AM. Will continue to monitor patient for hour following medication admi nistration. Patient currently sleeping. Results of BPP discussed with Dr. Lomas. Plan to discharge patient home this afternoon. Vital Signs Provider: Reviewed; Within Normal Limits FHR Category Provider Fetus A: Category I NICHD Variability Prov Fetus A: Moderate 6-25bpm Dilatation, Provider: fingertip Effacement, Provider: 50 Station, Provider: floating NICHD Decel Fetus A IP Provider: None
--- NOTE | 2018-05-31 12:31 | OBDCSUM ---
Datetime: 05/31/2018 12:26 Discharged to, Provider: Home Follow up at, Provider: Disch Instr Activity: Normal activity Disch Instr Diet: Regular Discharge Instructions, Provider: Routine instructions given Discharge Diagnosis, Provider: False Labor - Undelivered Discharge Time: 05/31/2018 12:45 Follow up in weeks, Provider: scheduled appointment Contraception discussed, Prov: Yes Disch Activity Restrictions: No exercising; No lifting; Minimize stair-climbing; No sexual activity; Nothing in vagina - [place], tampons, douche Discharge Comment, Provider: Patient s/p BPP with 8. Patient re-evaluated, reports 8/10 pain, how ever appears to be resting comfortably in bed. Reactive NST. Irregular contractions with no cervical change Patient given Nubain 11:30AM. Monitored for 1 more hour and continue table. Patient currently sleeping and UC's slowed down Will D/C home with instructions Results of BPP discussed with Dr. Lomas. Plan to discharge patient home this afternoon. Discharge Diagnosis Prov Other: [place] contractions monitoring reassuring Contraception after Delivery: Undecided Datetime: 05/31/2018 12:06 Discharged to, Provider: Home Follow up at, Provider: Dr. Lomas Disch Instr Diet: Regular Discharge Diet restrict Prov: No heavy lifting, nothing per vagina x1 week as per Dr. Pereira Follow up in weeks, Provider: Call Dr. Lomas's office for follow up appointment Disch Referrals: None
[2018-05-31 18:50] VITALS: BP 113/71; PULSE 83; RESP 20; TEMP 98.1; O2SAT 99
== END 2018-05-31 13:40 | disposition home or self-care (01) ==
LOC: C.EROB 20:14 → INTOOBSV 22:34 → C.4D 22:34
PROVIDERS: ADMIT Obstetrics & Gynecology; ATTEND Obstetrics & Gynecology
DX: O47.9 False labor, unspecified (principal); Z82.49 Family history of ischemic heart disease and other diseases of the circulatory system; J45.909 Unspecified asthma, uncomplicated
CPT/HCPCS: 76815; 76818; 81001; 99284; G0378; J1200; J7120

== ENCOUNTER 2018-06-19 19:33 | Inpatient (IN) | payer OTHER ==
[2018-06-19 20:33] VITALS: BMI 36.9
[2018-06-19] MEDS ORDERED: Lactated Ringer's 1,000 ML IV ONE (21:32)
[2018-06-19 21:35] LABS: SQUAMOUS EPITHIAL 41 /hpf (0-5); URINE BACTERIA RARE (<OCC); URINE BILIRUBIN NEGATIVE (NEGATIVE); URINE BLOOD NEGATIVE (NEGATIVE); URINE CLARITY Hazy (Clear); URINE COLOR Yellow (YELLOW); URINE GLUCOSE (UA) NORMAL (Normal); URINE LEUKOCYTE ESTERASE 3+ Leu/uL (Negative); URINE PROTEIN 1+ mg/dL (NEGATIVE)
[2018-06-19 21:54] LABS: BASO % 0.8 % (0.0-2.0); EOS # 0.2 K/uL (0.0-0.7); EOS % 4.5 % (0.0-4.0); HEMOGLOBIN 10.6 g/dL (11.0-16.0); LYMPH % 38.1 % (20.0-40.0); MEAN CORPUSCULAR HEMOGLOBIN 25.9 pg (27.0-31.0); MEAN CORPUSCULAR HGB CONC 32.9 g/dL (33.0-37.0); MEAN PLATELET VOLUME 9.7 fL (7.2-11.7); MONO # 0.5 K/uL (0.0-0.8); MONO % 10.1 % (0.0-10.0); NEUT # 2.5 K/uL (1.8-7.0); NEUT % 46.5 % (50.0-75.0); NRBC % 0.1 % (0.0-2.0); RBC 4.1 Mil/uL (3.80-5.20); WHITE BLOOD COUNT 5.3 K/uL (4.8-10.8)
[2018-06-19 22:01] LABS: MEAN CELL VOLUME 78.7 fL (81.0-99.0)
[2018-06-19 22:10] LABS: ALB/GLOB RATIO 0.9 (1.0-2.1); ALBUMIN 3.2 g/dL (3.5-5.0); ALT/SGPT 28 U/L (9-52); AST/SGOT 20 U/L (14-36); BLOOD UREA NITROGEN 6 mg/dL (7-17); CALCIUM 9.1 mg/dl (8.6-10.4); GFR NON-AFRICAN AMERICAN > 60; URIC ACID 3.5 mg/dL (2.2-7.5)
[2018-06-19] MEDS ORDERED: ceFAZolin IV 2 gm in Dextrose 2 GM/50 ML BAG IVPB SCH (22:15)
[2018-06-19] MEDS ORDERED: ceFAZolin 2 GM in Sodium Chloride 0.9% 100 ML IVPB ONE (22:30)
[2018-06-19] MEDS ORDERED: Penicillin G 5 Million Unit Vial IVPB ONE (23:52)
--- NOTE | 2018-06-20 01:07 | OBHP ---
Datetime: 06/19/2018 23:15 IP Adm Impression: Term, intrauterine ; Intact Membranes IP Admit Plan: Admit to unit; Initiate labor protocol IP Indication for Induction: Not Applicable Datetime: 06/19/2018 09:47 IP Chief Complaint Other: Pt seen at 21:47 instead of 09:47 Admit Comment, IP Provider: 22 yo female G1 with an IUP at 39.1 weeks Presented from home with c/o of back and suprapubic pain with mild discomfort with urination. Also c/o's of feet and ankle swelling. Denies feeling contractions. Admits to adequate FM and denies LOF, VB or VD. Gives Hx of chronic Back Pain with previous Epidurals for treatment. Mildly elevated BP's but no MUSA's. BV or Epigastric pains PMHx Asthma but no meds for over a year PSHx Foot Sx Meds PNV KNDA Social : Denies x 3 A/P Term and Patient of Dr Malorie Lomas who has requested for Hospitalist to see her patient s C/O of Back and Suprapubic pain, probable UTI Regular contractions and only few perceived by patient but not very painful Cervix unfavorable at this time LE's with minimal swelling and nl DTR's Probable Gestational HTN and PIH panel ordered as well as UA NST reactive Continue monitoring for FHT's, Contractions and BP's Will place in observation and proceed accordingly Pelvic Type - PN: Adequate Extremities - PN: Normal Abdomen - PN: Normal Back - PN: Normal Breast - PN: Not Done Lungs - PN: Normal Heart - PN: Normal Thyroid - PN: Normal Neurologic - PN: Normal HEENT - PN: Normal General - PN: Normal Presentation-Admit: Vertex FHR - Baseline A Provider: 140 Membranes, Provider: Intact Contraction Comments Provider: Q 4-5 mins Comments, ACOG Physical Exam: No CVA tenderness Gestation - Est Wks by US: 39.1 IP Hx Assessment: Minimal PNC records available EGA AdmitDate IP: 39.0 Vital Signs Provider: Reviewed Vital Signs Provider Details: BP's up to 140's/90's IP Chief Complaint: Uterine contractions; Signs/symptoms UTI; Maternal discomfort; evaluation NICHD Variability Prov Fetus A: Moderate 6-25bpm NICHD Accel Fetus A IP Provider: 10X10 FHR Category Provider Fetus A: Category I NICHD Decel Fetus A IP Provider: None Dilatation, Provider: 1 Effacement, Provider: 30 Station, Provider: -3 Genitourinary Exam: Normal DTRs - PN: Normal
--- NOTE | 2018-06-20 01:15 | OBADHP ---
Datetime: 06/19/2018 23:15 Pelvic Type - PN: Adequate Extremities - PN: Normal Abdomen - PN: Normal Back - PN: Normal Breast - PN: Not Done Lungs - PN: Normal Heart - PN: Normal Thyroid - PN: Normal Neurologic - PN: Normal HEENT - PN: Normal General - PN: Normal Presentation-Admit: Vertex FHR - Baseline A Provider: 140 Membranes, Provider: Intact Contraction Comments Provider: Q 5-6 mins Gestation - Est Wks by US: 39.1 Vital Signs Provider: Reviewed Vital Signs Provider Details: BP's with Diastolics on the 90's IP Chief Complaint: Uterine contractions; Signs/Symptoms Gestational HTN; Signs/symptoms UTI; Matern al discomfort NICHD Variability Prov Fetus A: Moderate 6-25bpm NICHD Accel Fetus A IP Provider: 10X10 NICHD Decel Fetus A IP Provider: None Dilatation, Provider: 1 Effacement, Provider: 60 Station, Provider: -2 Genitourinary Exam: Normal DTRs - PN: Normal EGA AdmitDate IP: 39.0 IP Adm Impression: Term, intrauterine ; Intact Membranes IP Admit Plan: Admit to unit; Initiate labor protocol Datetime: 06/19/2018 09:47 IP Chief Complaint Other: Pt seen at 21:47 instead of 09:47 Admit Comment, IP Provider: 22 yo female G1 with an IUP at 39.1 weeks Presented from home with c/o of back and suprapubic pain with mild discomfort with urination. Also c/o's of feet and ankle swelling. Denies feeling contractions. Admits to adequate FM and denies LOF, VB or VD. Gives Hx of chronic Back Pain with previous Epidurals for treatment. Mildly elevated BP's but no MUSA's. BV or Epigastric pains PMHx Asthma but no meds for over a year PSHx Foot Sx Meds PNV KNDA Social : Denies x 3 A/P Term and Patient of Dr Malorie Lomas who has requested for Hospitalist to see her patient s C/O of Back and Suprapubic pain, probable UTI Regular contractions and only few perceived by patient but not very painful Cervix unfavorable at this time LE's with minimal swelling and nl DTR's Probable Gestational HTN and PIH panel ordered as well as UA NST reactive Continue monitoring for FHT's, Contractions and BP's Will place in observation and proceed accordingly Comments, ACOG Physical Exam: No CVA tenderness IP Hx Assessment: Minimal PNC records available FHR Category Provider Fetus A: Category I
--- NOTE | 2018-06-20 01:21 | OBADHP ---
Datetime: 06/19/2018 23:15 Admit Comment, IP Provider: 22 yo female G1 with an IUP at 39.1 weeks Presented from home with c/o of back and suprapubic pain with mild discomfort with urination. Also c/o's of feet and ankle swelling. Denies feeling contractions. Admits to adequate FM and denies LOF, VB or VD. Gives Hx of chronic Back Pain with previous Epidurals for treatment. Mildly elevated BP's but no MUSA's. BV or Epigastric pains PMHx Asthma but no meds for over a year PSHx Foot Sx Meds PNV KNDA Social : Denies x 3 A/P Term and Patient of Dr Malorie Lomas who has requested for Hospitalist to see her patient s C/O of Back and Suprapubic pain, UA with UTI findings One Dose of Ancef 2 grams IV given and will start on PCN G for unknown GBS status Persistent Regular contractions and now perceived by patient as painful. 6-7/10 Cervix with + changes LE's with minimal swelling and nl DTR's Probable Gestational HTN and PIH panel WNL. Remains asymptomatic UA with +1 proteinuria but P?Cr ratio of 0.9 NST reactive Decision made to admit patient in early labor and for anticipated vaginal delivery Will augment if indicated Continue close monitoring of FHT's, contractions and BP's EGA AdmitDate IP: 39.0
[2018-06-20] MEDS: Penicillin G Potassium 2.5 MU in Dextrose 5% In Water 50 ML IV SCH ×4 (04:00→16:00)
[2018-06-20] MEDS ORDERED: Oxytocin 30 UNIT 30 UNITS/500 ML BAG IV ONE ×2 (08:05→09:00)
[2018-06-20] MEDS ORDERED: Fentanyl/Bupivacaine HCl 250 ML EPI ONE (09:32)
[2018-06-20] MEDS: Lactated Ringer's 1,000 ML IV SCH ×2 (11:36→11:37)
[2018-06-20] MEDS ORDERED: Sodium Citrate/Citric Acid 15 ml Sol ONE (18:50)
[2018-06-20] MEDS ORDERED: cefOXitin IV 2 gm in Saline 2 GM/50 ML BAG IVPB ONE (18:50)
[2018-06-20] MEDS ORDERED: Oxytocin 20 units in LR 2,000 ML IV ONE (18:50)
[2018-06-20] MEDS ORDERED: Lidocaine 2% MPF (5 ml) Inj ONE ×3 (18:57→19:03)
[2018-06-20] MEDS ORDERED: Lidocaine Hydrochloride 5 ML INJ ONE (18:57)
[2018-06-20] MEDS ORDERED: Sodium Citrate/Citric Acid 15 ml Sol PO ONE (18:57)
[2018-06-20] MEDS ORDERED: Sodium Bicarbonate (8.4%) 50 Meq Syringe ONE (18:58)
[2018-06-20] MEDS ORDERED: cefOXitin IV 2 gm in Dextrose 2 GM/50 ML BAG IVPB SCH (19:00)
[2018-06-20] MEDS ORDERED: EPINEPHrine 1 mg/ml (1:1000) Inj ONE (19:03)
[2018-06-20] MEDS ORDERED: Oxytocin 10 Units/ml Inj ONE (19:04)
[2018-06-20] MEDS ORDERED: Ketamine 50 mg/ml Inj (10 ml) ONE (19:09)
--- NOTE | 2018-06-20 19:14 | OBPN ---
Datetime: 06/20/2018 18:59 IP Progress Plan Other: gest HTN IP Progress Impression Other: repetitive late decelerations IP Progress Impression: Non-reassuring heart rate IP Procedures: Sterile Vag Exam IP Progress Plan: Deliver- Section Contraction Comments Provider: 2-4 FHR - Baseline A Provider: 150 Gestation - Est Wks by US: 39w 1d Presentation-Admit: Vertex IP Progress Note Comment: Patient examined on two occasions: 1815 hours secondary to variable decele rations, and at 1900 hours for same. At 1815 hours, intracevical ballo removed, cervix 7cm/50%/-3. IUPC inserted without incident. Noa ent placed on right lateral position FHTR improved to 140 bpm. Patient counseled for abdominal delive ry due to recurring late decelerations. R/B/C of same and continued WILL discussed; patient has opted for section. Cervical exam now: 7cm/60%/0.. Assessment: 22 y.o. , 39w 1d, failed IOL for primary C/S for repetitve late decelerations. Co nsents signed, dated, witnessed and palced in chart. Gest HTN; no evidence of pre-eclampsia. Clinica lly stable. Plan: 1) Abdominal prep and shave 2) mefoxin, telecommunications engineer to O.R. 3) Notify anesthesia 4) Notify peds 5) call center support consultant to O.R. Vital Signs Provider: Reviewed; Within Normal Limits FHR Category Provider Fetus A: Category III NICHD Variability Prov Fetus A: Moderate 6-25bpm Dilatation, Provider: 7 Effacement, Provider: 60 Station, Provider: 0 NICHD Decel Fetus A IP Provider: Late Datetime: 06/20/2018 10:15 IP Informed Consent Obtain: Vaginal Delivery Pool Provider: Negative Membranes, Provider: Intact NICHD Accel Fetus A IP Provider: [id number] Datetime: 06/19/2018 23:15 Vital Signs Provider Details: BP's with Diastolics on the 90's
[2018-06-20] MEDS ORDERED: Morphine 4 MG/ML VIAL ONE (20:00)
[2018-06-20] MEDS ORDERED: Morphine 1 mg/ml preservative-free Inj(Duramorph) ONE (20:01)
[2018-06-20] MEDS ORDERED: DiphenhydrAMINE 50 mg/ml Inj IVP PRN (20:45)
[2018-06-20] MEDS ORDERED: Oxycodone/Acetaminophen 5/325 mg Tab PO PRN (21:03)
[2018-06-20] MEDS: Simethicone 80 mg Chewtab PO SCH (23:44)
[2018-06-21] MEDS: cefOXitin IV 2 gm in Dextrose 2 GM/50 ML BAG IVPB SCH ×2 (00:02→06:34)
--- NOTE | 2018-06-21 00:19 | OBDS ---
DELIVERY PERSONNEL Delivery Doctor: Keiry Castillo MD Scrub Nurse: Veronika Henry Anesthesiologist: Shayy Roper MD MATERNAL INFORMATION Delivery Anesthesia: Epidural Medications in Delivery: Pitocin 20 units IV Estimated Blood Loss (ml): 600 Placenta Cultured: Yes Provider Comments: Uncomplicated LTCS with atraumatic delivery of live female infant, weight 6lb 15 oz, DWAIN position, 's 9/9;cord pH 7.21. EBL 600 mL U.O. 500 mL IVFs: 1800 mL LR with 20 units pitoicn in 1000 mL after delivery LABOR SUMMARY EDC: 06/26/2018 00:00 No. Babies in Womb: 1 Attempted: No Labor Anesthesia: Epidural LABOR INFORMATION Reason for Induction: Not Applicable Onset of Labor: 06/20/2018 10:20 Cervical Ripening Agents: Other Other Ripening Agents: ICB Oxytocin: Augmentation Group B Beta Strep: Done, Result Unknown Antibiotics # of Doses: 3 Antibiotics Time of Last Dose: 1600 Steroids Given: None Reason Steroids Not Administered: Not Applicable MEMBRANES Membranes Rupture Method: Spontaneous Rupture of Membranes: 06/20/2018 18:07 Length of Rupture (hrs): 1.47 Amniotic Fluid Color: Clear Amniotic Fluid Amount: Moderate Amniotic Fluid Odor: None STAGES OF LABOR Stage 3 hrs: 0 Stage 3 min: 1 Total Time in Labor hrs: 9 Total Time in Labor min: 16 CSECTION DELIVERY Primary Indication: Repetitve late decelerations CSection Incidence: Primary Labor: Labor CSection Incision: Lower Uterine Transverse Uterine Closure: Double-layer closure BABY A INFORMATION Delivery Date/Time: 06/20/2018 19:35 Method of Delivery: Born in Route : No : N/A Forceps: N/A Vacuum Extraction: N/A Shoulder Dystocia : No SHOULDER DYSTOCIA BABY A Infant Delivery Date/Time: 06/20/2018 19:35 PRESENTATION/POSITION BABY A Presentation: Cephalic Cephalic Presentation: Vertex Vertex Position: Right Occipital Anterior Breech Presentation: N/A PLACENTA INFORMATION BABY A Placenta Delivery Time : 06/20/2018 19:36 Placenta Method of Delivery: Spontaneous Placenta Status: Delivered SCORES BABY A Heart Rate 1 min: >100 bpm Resp Effort 1 min: Good Cry Reflex Irritability 1 min: Cough or Sneeze or Pulls Away Muscle Tone 1 min: Active Motion Color 1 min: Body [place], Extremities Blue SCORE 1 MIN: 9 Heart Rate 5 min: >100 bpm Resp Effort 5 min: Good Cry Reflex Irritability 5 min: Cough or Sneeze or Pulls Away Muscle Tone 5 min: Active Motion Color 5 min: Body [place], Extremities Blue SCORE 5 MIN: 9 INFANT INFORMATION BABY A Gestational Age at Delivery: 39.1 Gestational Status: Term Infant Outcome : Liveborn Sex: Female IDENTIFICATION/MEDS BABY A ID Band Number: [id number] ID Band Location: Left Leg; Left Arm Sensor Applied: Yes Sensor Number: [id number] Sensor Location : Cord Clamp Vitamin K Given : Aquamephyton 1 mg IM; Left Thigh Erythromycin Given: Given Both Eyes WEIGHT/LENGTH BABY A Infant Birthweight (gms): 3155 Weight (lb): 6 Weight (oz): 15 Infant Length Inches: 19.00 Length cms: 48.3 CORD INFORMATION BABY A No. Cord Vessels: 3 Nuchal Cord : Around Neck x1, Loose Nuchal Cord Other: leg, body Cord Blood Taken: Yes Suction: Mouth ASSESSMENT BABY A Complications: Multiple Late Decels Physical Findings at Delivery: Within Normal Limits Respirations: Appears Normal Editor Managing Director/ALS Called : Yes Infant Care By: Dr Tapia Transferred To: Nursery
--- NOTE | 2018-06-21 00:29 | PCM.SURG1 ---
Surgeon's Initial Post Op Note - Surgeon's Notes Surgeon: Ching Castillo MD Brick Stacker: Alex Valle MD Type of Anesthesia: Other (Epidural) Anesthesia Administered By: Ester Roper MD Pre-Operative Diagnosis: 39 weeks 1 days, repetitive late decelerations; gestational hypertension. Operative Findings: Live female infant, DWAIN position, weight 6lb 15 oz, 's 9/9. Umbilical cord wrapped around right lower extremity and portion of torso. Cord pH 7.21. Normal uterus; normal ovaries and fallopian tubes, bilaterally Post-Operative Diagnosis: Same Operation Performed: Transverse lower uterine segment section Specimen/Specimens Removed: None Estimated Blood Loss: EBL {In ML}: 600 (U.O. 500 mL; IVFs 1,800 mL LR, 1,000 mL of which 20 Units pitocin were added) Blood Products Given: N/A Drains Used: No Drains Post-Op Condition: Good Date of Surgery/Procedure: 06/20/18 Time of Surgery/Procedure: 20:05
[2018-06-21 08:00] LABS: MEAN CELL VOLUME 78.6 fL (81.0-99.0); MEAN CORPUSCULAR HEMOGLOBIN 26.1 pg (27.0-31.0); MEAN CORPUSCULAR HGB CONC 33.2 g/dL (33.0-37.0); MEAN PLATELET VOLUME 9.4 fL (7.2-11.7); RBC 3.84 Mil/uL (3.80-5.20); RED CELL DISTRIBUTION WIDTH 13.8 % (11.5-14.5)
[2018-06-21 08:03] LABS: WHITE BLOOD COUNT 9.2 K/uL (4.8-10.8)
[2018-06-21] MEDS: Simethicone 80 mg Chewtab PO SCH ×4 (09:38→22:20)
[2018-06-21] MEDS: Prenatal Multivit/Folic Acid/Iron Tab PO SCH (09:38)
--- NOTE | 2018-06-21 11:43 | OP ---
PROCEDURE DATE: 06/20/2018 SURGEON: Ching Castillo MD. SENIOR MORTGAGE UNDERWRITER: Alex Valle MD. ANESTHESIOLOGIST: Keara Johnson MD. ANESTHESIA TYPE: Epidural. PREOPERATIVE DIAGNOSES: 39 weeks and 1 days' gestation, repetitive late decelerations, gestational hypertension. POSTOPERATIVE DIAGNOSIS: 39 weeks and 1 days' gestation, repetitive late decelerations, gestational hypertension. OPERATION PERFORMED: Transverse lower uterine segment section. OPERATIVE FINDINGS: Live female from the right occipital anterior position, weight 6 pounds 15 ounces, Apgars of 9 and 9 and 1 and 5 minutes respectively. Umbilical cord was noted to be wrapped around the right lower extremity and portion of the torso. Cord pH was 7.21. Normal uterus and normal ovaries and fallopian tubes bilaterally. SPECIMEN: None. ESTIMATED BLOOD LOSS: 600 mL. URINE OUTPUT: 500 mL. INTRAVENOUS FLUIDS: 1800 mL total of lactated Ringer's with second 1000 mL of which should was contained Pitocin. BLOOD PRODUCTS: None. COMPLICATIONS None. PROCEDURE The patient was taken to the operating room after having obtained informed consent for the anticipated procedure. This included discussion of possible risks and complications including but not limited to infection requiring antibiotics, repair of any damage to internal organs, hemorrhage requiring blood transfusion, possible hysterectomy. The patient expressed her understanding. All questions were answered. The consent forms were dated, signed, witnessed and placed in the chart. The patient had actually had a Van catheter inserted prior after placement of epidural and Mefoxin 2 g were given prior to being escorted to the operating room. In the operating room, the patient was placed on the operating room table in supine position and after assuring an adequate level of anesthesia using a scalpel, a Pfannenstiel incision was made on the skin. The incision was carried down to the subcutaneous tissue using the scalpel. Fascia was identified. It was nicked in midline and incision was extended bilaterally also using the scalpel by a blunt dissection. The rectus muscle was then dissected off the overlying fascia and by blunt dissection the abdominal cavity was entered. Bladder flap was created and a transverse incision was made on the lower uterine segment. Atraumatic delivery of the ensued with the findings as above. On the operative field, the infant's mouth and nose were bulb suctioned as umbilical cord was doubly clamped and cut. The was handed off the operative field to the auto electrical technician in attendance. A segment of the umbilical cord was requested for cord pH analysis. Results as above. By the Y manual extraction, the placenta was delivered. It was grossly intact with three vessels present in the cord. The uterus was exteriorized for closure. This was done in two layers using 1-0 Vicryl. The first layer was in a running interlocking fashion. The second layer was in a horizontal imbricating fashion. Attention was then directed to the posterior aspect of the uterus. Copious irrigation was performed. Normal pelvic viscera were noted with the findings as above. Attention was then redirected back to the uterine incision. It was noted to be hemostatic. Surgicel was placed along the incision. The bladder flap was reapproximated using 2-0 chromic in a running fashion. The uterus was then returned to abdominal cavity and the paracolic gutters were cleared of all debris. The parietal peritoneum was then reapproximated using chromic in a running fashion and the muscle was reapproximated in the midline using 2-0 chromic in a running fashion. The fascia was reapproximated using 0 Vicryl in a running fashion in one segment. The subcutaneous tissue was reapproximated using 2-0 plain catgut in a running fashion and the skin was reapproximated using surgical clips. Pressure dressing was applied. The patient was repositioned in a frog-leg manner. Bimanual examination was performed. The uterus evacuated of all clots and debris. It was contracted and firm, and noted to be approximately 2 fingerbreadths below the umbilicus. The patient was transferred back to the nursery. Both mother and were in stable condition. Dr. Alex Valle was present for the entire procedure. He was present from beginning to end. His presence was needed for one adequate visualization of the operative field at all times, two the safe and atraumatic delivery of the infant as described above, and three assuring adequate hemostasis throughout. Ching Castillo MD
--- NOTE | 2018-06-21 20:15 | OBPPN ---
Datetime: 06/21/2018 07:20 PP Pain Prov: Within normal limits PP Nausea Prov: Denies PP Flatus Prov: No PP BM Prov: No PP Heart Prov: Normal PP Lungs Prov: Abnormal PP Abdomen/Uterus Prov: Normal PP Lochia Prov: Normal PP Vulva/Perineum Prov: Normal PP CVA Tenderness Prov: Normal PP Extremities Prov: Normal PP C/S Incision Prov: Normal PP Progress Prov: Not Applicable PP Comments Phys Exam Prov: Gen: patient sitting in chair in NAD Heart: S1, S2, RRR Chest: diffuse inspiratory wheezing on upper and lower lung arias. Abd: soft, +BS, appropriate tender to palpate, dressing applied to surgical incision, appears daniel n, no erythema, no swelling, no discahrge. Fundal height at the level of umbilicus Ext: peripheral pulses palpable, no edema or cyanosis (Annotations: Data stored by N on behalf o f user) PP Impression Prov: Normal progression; Induced Hypertension PP Plan Prov: Continue present management PP Progress Note Prov: Patient seen and examined at bedside. POD#1 s/p primary C/S at 39.1 GA for late deceleration and non reassuring FHR. Patient has no complaints. Tolerated her liquid diet. Did not pass flatus, no BM yet. Ambulating f rom bed to [facility]. Moderate abdominal pain 7/10, does not want to take Percocet despite adequate counse ling. Patient admits to cough with clear sputum. She is asthmatic but did not use inhaler for a while . She denies nose congestion or discharge. Denied fever, chills, chest pain, SOB, nausea, vomiting. P atient is not willing to breast feed, baby on formula. Vitals are stable with normal BP. Baby is doin g well. A/P: 22 y/o POD#1 s/p primary C/S at 39.1 GA for late deceleration and non reassuring FHR Normal PP progression Advance care Respiratory therapy with HHN treatments Encourage Incentive spirometry Pain management, encourage ambulation in Hallways and po water intake Patient counseled to take pain meds to help her ambulate BP monitoring Stable and Satisfactory condition and Recovery Case reviewed and discussed with attending Dr Randall Herrera, DO, PGY1 IP PP Procedures: None Vital Signs Provider PP: Reviewed; Within Normal Limits
[2018-06-21] MEDS ORDERED: Albuterol 0.083% Inhal Sol (2.5 mg/3 mL) UD INH PRN (21:32)
[2018-06-21] MEDS ORDERED: Albuterol HFA 90 mcg/actuation (8 g) INH PRN (21:40)
[2018-06-22] MEDS: Prenatal Multivit/Folic Acid/Iron Tab PO SCH (09:28)
[2018-06-22] MEDS: Simethicone 80 mg Chewtab PO SCH ×4 (09:29→21:24)
--- NOTE | 2018-06-22 18:17 | OBPPN ---
Datetime: 06/22/2018 07:00 PP Pain Prov: Within normal limits PP Nausea Prov: Denies PP Flatus Prov: Yes PP BM Prov: No PP Heart Prov: Normal PP Lungs Prov: Normal PP Abdomen/Uterus Prov: Normal PP Lochia Prov: Normal PP Vulva/Perineum Prov: Normal PP CVA Tenderness Prov: Normal PP Extremities Prov: Abnormal PP C/S Incision Prov: Normal PP Progress Prov: Not Applicable PP Comments Phys Exam Prov: Gen: patient sitting in chair in NAD Heart: S1, S2, RRR Chest: CTA b/l. No wheezing Abd: soft, +BS, appropriate tender to palpate, surgical incision clean, no erythema, no swelling, no discahrge. Fundal height at the level of umbilicus Ext: peripheral pulses palpable, b/l LL pitting edema, +1 up to knee level, no calf muscle tender ness. no cyanosis PP Impression Prov: Normal progression PP Plan Prov: Continue present management PP Progress Note Prov: Patient seen and examined at bedside. POD#2 s/p primary C/S at 39.1 GA for late deceleration and non reassuring FHR. Tolerating her regular diet. Did pass flatus, no BM yet. Ambulating in her room. Moderate abdomina l pain 7/10, helped somewhat with Motrin, took 2 doses last night. Declines Percocet despite adequate counseling. Patient admits to b/l LL edema to the knee level, started only last night, feels heavy w hen walking but denied calf muscle tenderness. Cough improved spontaneously. Denied fever, chills, ch est pain, SOB, nausea, vomiting. Patient is not willing to breast feed, baby on formula. Vitals are s table with normal BP. Baby is doing well. A/P: 22 y/o POD#2 s/p primary C/S at 39.1 GA for late deceleration and non reassuring FHR Normal PP progression Advance care Encourage Incentive spirometry Pain management, encourage ambulation in Hallways and po water intake Encouraged to elevate legs while sitting Patient counseled to take pain meds to help her ambulate BP monitoring Stable and Satisfactory condition and Recovery Anticipate discharge home in AM Case reviewed and discussed with attending Dr Randall Herrera DO, PGY1 IP PP Procedures: None Vital Signs Provider PP: Reviewed; Within Normal Limits
[2018-06-23] MEDS ORDERED: Measles, Mumps, and Rubella 0.5 ML VIAL SC ONE (08:21)
[2018-06-23] MEDS: Oxycodone/Acetaminophen 5/325 mg Tab PO PRN ×2 (08:40→12:53)
--- NOTE | 2018-06-23 08:54 | OBDCSUM ---
Datetime: 06/23/2018 08:24 Discharged to, Provider: Home Follow up at, Provider: Lauryn Johns Disch Instr Activity: Normal activity; May be up to bathroom; May be up for meals; May Shower Disch Instr Diet: Regular Discharge Instructions, Provider: Routine instructions given Discharge Diagnosis, Provider: Term Delivered; Failed Induction Discharge Time: 06/23/2018 08:30 Follow up in weeks, Provider: 1 week Disch Referrals: None Contraception discussed, Prov: Yes Disch Activity Restrictions: No lifting; No driving; No sexual activity; Nothing in vagina - Interco urse, tampons, douche Discharge Comment, Provider: Please discharge patient home Please follow up with your Personnel Quality Assurance Auditor, Dr. Delfino Lomas in 1 week for incision check Please follow up with your revenue coordinator as discussed for exam Nothing per vaginal and no sexual intercourse for 6-8 weeks Please no heavy lifting for 6-8 weeks Please continue with ambulation and hydration Please use Motrin 600mg PO Q6H as needed for pain control Please take jordan-sequel 1 tab PO BID Please return to the hospital or call your physician if any symptoms of fever, chills, nausea, vom iting, abdominal pain, heavy vaginal bleeding, drainage from the incision site or dizziness. Please take care. Discharge Diagnosis Prov Other: PLTCS at 39.1, repetitive late decelerations; gestational hypertensi on Contraception after Delivery: Not Planning to Use
[2018-06-23 09:07] VITALS: BP 127/86; PULSE 80; TEMP 97.5; O2SAT 100
--- NOTE | 2018-06-23 09:34 | OBPPN ---
Datetime: 06/23/2018 07:10 PP Pain Prov: Within normal limits PP Nausea Prov: Denies PP Flatus Prov: Yes PP BM Prov: No PP Breasts Prov: Not Done PP Heart Prov: Normal PP Lungs Prov: Normal PP Abdomen/Uterus Prov: Normal PP Lochia Prov: Normal PP Vulva/Perineum Prov: Normal PP CVA Tenderness Prov: Normal PP Extremities Prov: Abnormal PP C/S Incision Prov: Normal PP Progress Prov: Not Applicable PP Comments Phys Exam Prov: Gen: patient sitting in chair in NAD Heart: S1, S2, RRR Chest: CTA b/l. No wheezing Abd: soft, +BS, appropriate tender to palpate, surgical incision clean, no erythema, no swelling, no discharge. Belen in place. Fundal height at one finger below the level of umbilicus Ext: peripheral pulses palpable, b/l LL pitting edema, +1 up to knee level, no calf muscle tender ness. no cyanosis PP Impression Prov: Normal progression; Induced Hypertension PP Plan Prov: Continue present management; Discharge PP Progress Note Prov: Patient seen and examined at bedside. POD#3 s/p primary C/S at 39.1 GA for NRFHT Tolerating her regular diet. She is passing flatus, no BM yet. Ambulating in her room. Moderate ab dominal pain 7/10, helped somewhat with Motrin, took 3 doses last night. Declines Percocet despite ad equate counseling. Patient admits to b/l LL edema to the knee level, improving with leg elevation. Sh e denied calf muscle tenderness. Denied fever, chills, chest pain, SOB, nausea, vomiting. Patient is not willing to breast feed, baby on formula. Vitals are stable with normal BP. Baby is doing well. A/P: 22 y/o POD#3 s/p primary C/S at 39.1 GA d/t NRFHT Normal PP progression Advance care Encourage Incentive spirometry Pain management, encourage ambulation in Hallways and po water intake Encouraged to elevate legs while sitting Patient counseled to take pain meds to help her ambulate BP normal Stable and Satisfactory condition and Recovery Rubella, MMR, Flu vaccines to be given today Discharge home this AM Case reviewed and discussed with attending Dr Veda Herrera, DO, PGY1 PT seen at bedside with residents/medical students. Pt doing well (+) Flatus (-) BM. Incision well approximated- belen in place. F/u with private MD. D/C home. [place] D.O. IP PP Procedures: None Vital Signs Provider PP: Reviewed; Within Normal Limits
[2018-06-23] MEDS ORDERED: Influenza Vaccine 60 MCG/0.5 ML SYR (3 yr & up) IM ONE (10:00)
[2018-06-23] MEDS: Simethicone 80 mg Chewtab PO SCH ×2 (11:49→14:08)
[2018-06-23] MEDS: Prenatal Multivit/Folic Acid/Iron Tab PO SCH (11:51)
[2018-06-23 19:17] VITALS: RESP 19
== END 2018-06-23 14:45 | disposition home or self-care (01) | DRG 787 ==
LOC: C.EROB 19:33 → C.4D 22:51 → C.4M 06-20 23:30
PROVIDERS: ADMIT Obstetrics & Gynecology; ATTEND Obstetrics & Gynecology
PROC: 10D00Z1 Extraction of Products of Conception, Low, Open Approach (ICD-10-PCS; principal; 2018-06-20)
DX: O76 Abnormality in fetal heart rate and rhythm complicating labor and delivery (principal); O23.43 Unspecified infection of urinary tract in pregnancy, third trimester; O13.4 Gestational [pregnancy-induced] hypertension without significant proteinuria, complicating childbirth; O61.9 Failed induction of labor, unspecified; O69.81X0 Labor and delivery complicated by cord around neck, without compression, not applicable or unspecified; Z3A.39 39 weeks gestation of pregnancy; O12.14 Gestational proteinuria, complicating childbirth; Z37.0 Single live birth